=== PATIENT | female | born 1995 | race African-American/Black ===

== ENCOUNTER 2017-08-27 12:57 | Emergency (ER) | payer SELFPAY ==
--- NOTE | 2017-08-27 13:18 | ER Document Report ---
ED Medical Screen (RME) - General Chief Complaint: Arm Pain Stated Complaint: ABSCESS UNDER LEFT ARM Time Seen by Provider: 08/27/17 13:13 Notes: RME DISCLOSURE I have seen this patient as part of a Rapid Medical Evaluation and, if applicable, placed any initially appropriate orders. The patient will be seen and fully evaluated, including a full history and physical exam, by a provider ( in Main ED or Fast Track) when a room becomes available. 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 She has baseline numbness and tingling and states that this is getting worse as well. She has no new complaints. She denies shortness of breath. She cannot tell me what her goals are for this ED visit therefore nothing ordered. TRAVEL OUTSIDE OF THE [place] IN LAST 30 DAYS: No - Related Data Allergies/Adverse Reactions: No Known Allergies Allergy (Verified 06/27/15 14:14) Past Medical History - Social History Chew tobacco use (# tins/day): No Frequency of alcohol use: Occasional Drug Abuse: Marijuana Renal/ Medical History: Denies: Hx Peritoneal Dialysis Past Surgical History: Reports: Hx Section - Immunizations Hx Diphtheria, Pertussis, Tetanus Vaccination: No - given today Physical Exam - Vital signs Vitals: Temp Pulse Resp BP Pulse Ox 97.9 F 78 14 109/68 99 08/27/17 13:10 08/27/17 13:10 08/27/17 13:10 08/27/17 13:10 08/27/17 13:10 Course - Vital Signs Vital signs: Temp Pulse Resp BP Pulse Ox 97.9 F 78 14 109/68 99 08/27/17 13:10 08/27/17 13:10 08/27/17 13:10 08/27/17 13:10 08/27/17 13:10
[2017-08-27] MEDS ORDERED: IBUPROFEN 600 MG TABLET PO ONE (14:38)
--- NOTE | 2017-08-27 14:38 | ER Document Report ---
ED Extremity Problem, Upper - General Chief Complaint: Arm Pain Stated Complaint: ABSCESS UNDER LEFT ARM Time Seen by Provider: 08/27/17 13:13 Mode of Arrival: Ambulatory Information source: Patient Notes: 22-year-old female complaining of neurofibromatosis type I left axillary tumor that is getting larger since March causing paresthesias in her left arm and hand. Started with just the first 3 fingers but this morning she was unable to grasp or use her whole hand. She had a tumor removed from her neck at [facility] years ago. She has no local doctor at this time. TRAVEL OUTSIDE OF THE [place] IN LAST 30 DAYS: No - Related Data Allergies/Adverse Reactions: No Known Allergies Allergy (Verified 06/27/15 14:14) Past Medical History - General Information source: Patient - Social History Smoking Status: Current Every Day Smoker Chew tobacco use (# tins/day): No Frequency of alcohol use: Occasional Drug Abuse: Marijuana Lives with: Friend Family History: Thyroid Disfunction Patient has suicidal ideation: No Patient has homicidal ideation: No Renal/ Medical History: Denies: Hx Peritoneal Dialysis Past Surgical History: Reports: Hx Section - Immunizations Hx Diphtheria, Pertussis, Tetanus Vaccination: No - given today Review of Systems - Review of Systems Constitutional: No symptoms reported EENT: No symptoms reported Cardiovascular: No symptoms reported Respiratory: No symptoms reported Gastrointestinal: No symptoms reported Genitourinary: No symptoms reported Female Genitourinary: No symptoms reported Musculoskeletal: See HPI Skin: No symptoms reported Hematologic/Lymphatic: No symptoms reported Neurological/Psychological: No symptoms reported Physical Exam - Vital signs Vitals: Temp Pulse Resp BP Pulse Ox 97.9 F 78 14 109/68 99 08/27/17 13:10 08/27/17 13:10 08/27/17 13:10 08/27/17 13:10 08/27/17 13:10 Interpretation: Normal - General General appearance: Appears well, Alert In distress: None - HEENT Head: Normocephalic, Atraumatic Eyes: Normal Pupils: PERRL Neck: Supple - Respiratory Respiratory status: No respiratory distress Chest status: Nontender Breath sounds: Normal Chest palpation: Normal - Cardiovascular Rhythm: Regular Heart sounds: Normal auscultation Murmur: No - Abdominal Inspection: Normal Distension: No distension Bowel sounds: Normal Tenderness: Nontender Organomegaly: No organomegaly - Back Back: Normal, Nontender - Extremities General upper extremity: Normal inspection, Nontender, Normal color, Normal ROM , Normal temperature General lower extremity: Normal inspection, Nontender, Normal color, Normal ROM , Normal temperature, Normal weight bearing. No: Aaron's sign Arm: Tender - left axillary soft tissue swelling that is firm, contiguous with anterior axillary muscle and anterolateral pectoral muscle. - Neurological Neuro grossly intact: Yes Cognition: Normal Orientation: AAOx4 [place] Coma Scale Eye Opening: Spontaneous [place] Coma Scale Verbal: Oriented Melisa Coma Scale Motor: Obeys Commands [place] Coma Scale Total: 15 Speech: Normal Motor strength normal: LUE, RUE, LLE, RLE Sensory: Normal Notes: 5+ strength hand squeeze, sensation intact, pulses normal - Psychological Associated symptoms: Normal affect, Normal mood - Skin Skin Temperature: Warm Skin Moisture: Dry Skin Color: Normal Skin irregularity: negative: Rash Course - Re-evaluation Re-evalutation: 08/27/[address] garcia general surgeon who rec. pt be referred to orthopedic surgeon, which I will do. Pt has had this since school age, but friend thinks it is getting larger. - Vital Signs Vital signs: Temp Pulse Resp BP Pulse Ox 98.0 F 66 19 111/66 100 08/27/17 15:04 08/27/17 15:04 08/27/17 15:04 08/27/17 15:04 08/27/17 15:04 Discharge - Discharge Clinical Impression: Neurofibromatosis, left axillary tumor, Arm paresthesia, left Condition: Good Disposition: HOME, SELF-CARE Instructions: Numbness or Paresthesia ([facility]) Additional Instructions: call and schedule appointment with the orthopedic surgeon, referral has been given to you tylenol and motrin for discomfort Prescriptions: Ibuprofen [Motrin 600 mg Tablet] 600 mg PO Q8HP PRN #30 tablet PRN Reason: Referrals: RYLEY SILVERMAN MD [ACTIVE STAFF] - Follow up as needed
[2017-08-27 15:08] VITALS: BP 111/66
== END 2017-08-27 15:07 | disposition home or self-care (01) ==
LOC: ER 12:57
DX: Q85.01 Neurofibromatosis, type 1 (principal); R20.2 Paresthesia of skin; Z98.890 Other specified postprocedural states; F17.200 Nicotine dependence, unspecified, uncomplicated
CPT/HCPCS: 99283

== ENCOUNTER 2018-01-06 09:53 | Emergency (ER) | payer SELFPAY ==
[2018-01-06 10:01] VITALS: BP 113/73
--- NOTE | 2018-01-06 10:14 | ER Document Report ---
ED General - General Chief Complaint: Abscess Stated Complaint: POSSIBLE ABSCESS Time Seen by Provider: 01/06/18 10:09 Notes: Chief complaint: Left axillary swelling History of complain:( obtained from----patient) 22 years old female with a history of neurofibromatosis presents today with left axillary mass which was there for many years. But she wanted to be removed. 2 months ago she was referred to [facility], but she could not go because of lack of insurance. Now she has gotten her Medicaid. Is causing discomfort but no sharp pain. No increase in pain or discomfort compared to other days. No fever chills or other constitutional symptoms. She was hoping that we will send her to [facility] from the ER. But this is not anything urgent. Previously a similar lesion from the left side of the neck was removed at [facility]. Onset: Many years ago Duration: Long-standing Severity: Mild to moderate Quality: None Context: Due to neurofibromatosis. Exacerbating factor and relieving factors: REVIEW OF SYSTEMS: CONSTITUTIONAL : Denies fever, chills, or sweats. Denies recent illness. EENT: Denies eye, ear, throat, or mouth pain or symptoms. Denies nasal or sinus congestion or discharge. Denies throat, tongue, or mouth swelling or difficulty swallowing. CARDIOVASCULAR: Denies chest pain. Denies palpitations or racing or irregular heart beat. Denies ankle edema. RESPIRATORY: Denies cough, cold, or chest congestion. Denies shortness of breath, difficulty breathing, or wheezing. GASTROINTESTINAL: Denies distention. Denies nausea, vomiting, or diarrhea. Denies blood in vomitus, stools, or per rectum. Denies black, tarry stools. Denies constipation. GENITOURINARY: Denies difficulty urinating, painful urination, burning, frequency, blood in urine, or discharge. FEMALE GENITOURINARY: Denies vaginal bleeding, heavy or abnormal periods, irregular periods. Denies vaginal discharge or odor. MUSCULOSKELETAL: Denies back or neck pain or stiffness. Denies joint pain or swelling. SKIN: Denies rash, lesions or sores. HEMATOLOGIC : Denies easy bruising or bleeding. LYMPHATIC: Denies swollen, enlarged glands. NEUROLOGICAL: Denies confusion or altered mental status. Denies passing out or loss of consciousness. Denies dizziness or lightheadedness. Denies headache. Denies weakness or paralysis or loss of use of either side. Denies problems with gait or speech. Denies sensory loss, numbness, or tingling. Denies seizures. PSYCHIATRIC: Denies anxiety or stress. Denies depression, suicidal ideation, or homicidal ideation. ALL OTHER SYSTEMS REVIEWED AND NEGATIVE. PHYSICAL EXAMINATION: GENERAL: Well-appearing, well-nourished and in no acute distress. Multiple neurofibromatosis lesions were noted throughout the skin HEAD: Atraumatic, normocephalic. EYES: Pupils equal round and reactive to light, extraocular movements intact, conjunctiva are normal. ENT: Nares patent, oropharynx clear without exudates. Moist mucous membranes. NECK: Normal range of motion, supple without lymphadenopathy LUNGS: Breath sounds clear to auscultation bilaterally and equal. No wheezes rales or rhonchi. HEART: Regular rate and rhythm without murmurs ABDOMEN: Soft, nontender, nondistended abdomen. No guarding, no rebound. No masses appreciated. Examination of genitals-deferred Musculoskeletal: Left axilla has a large mass which is larger than the baseball. Which is not tender, not erythematous, is not warm, hard and firm. Not mobile NEUROLOGICAL: Cranial nerves grossly intact. Normal speech, normal gait. Normal sensory, motor exams PSYCH: Normal mood, normal affect. SKIN: Multiple skin lesions of neurofibromatosis noted Dictation was performed using [employer] voice recognition software TRAVEL OUTSIDE OF THE [place] IN LAST 30 DAYS: No - HPI Notes: Dictated - Related Data Allergies/Adverse Reactions: No Known Allergies Allergy (Verified 01/06/18 09:56) Past Medical History - Social History Smoking Status: Unknown if Ever Smoked Cigarette use (# per day): No Chew tobacco use (# tins/day): No Frequency of alcohol use: Rare Drug Abuse: None Lives with: Family Family History: Reviewed & Not Pertinent, Thyroid Disfunction Patient has suicidal ideation: No Patient has homicidal ideation: No Renal/ Medical History: Denies: Hx Peritoneal Dialysis Past Surgical History: Reports: Hx Section - Immunizations Hx Diphtheria, Pertussis, Tetanus Vaccination: No - given today Review of Systems - Review of Systems Notes: Dictated Physical Exam - Vital signs Vitals: Temp Pulse Resp BP Pulse Ox 98.1 F 58 L 16 113/73 100 01/06/18 09:59 01/06/18 09:59 01/06/18 09:59 01/06/18 09:59 01/06/18 09:59 - Notes Notes: Dictated Course - Re-evaluation Re-evalutation: 01/06/18 10:13 She was explained very clearly and in detail that this is a lesion that none of our doctors here will do surgery on it she has to go to [facility] again. And asked to follow-up with primary care physician. To make necessary referral again. It is not something urgent. - Vital Signs Vital signs: Temp Pulse Resp BP Pulse Ox 98.1 F 58 L 16 113/73 100 01/06/18 09:59 01/06/18 09:59 01/06/18 09:59 01/06/18 09:59 01/06/18 09:59 Discharge - Discharge Clinical Impression: Neurofibromatosis Axillary mass Qualifiers: Laterality: left Qualified Code(s): R22.32 - Localized swelling, mass and lump , left upper limb Condition: Fair Disposition: HOME, SELF-CARE Instructions: Growth or Mass, Pending Workup ([facility])
== END 2018-01-06 10:32 | disposition home or self-care (01) ==
LOC: ER 09:53
DX: Q85.00 Neurofibromatosis, unspecified (principal)
CPT/HCPCS: 99283

== ENCOUNTER 2018-01-06 19:07 | Emergency (ER) | payer MEDICAID ==
[2018-01-06] MEDS ORDERED: NORMAL SALINE 1000 ML 1,000 ML IV ONE (19:18)
--- NOTE | 2018-01-06 19:19 | ER Document Report ---
ED General - General Chief Complaint: Vomiting Stated Complaint: VOMITING Time Seen by Provider: 01/06/18 19:16 Cannot obtain history due to: Intoxicated, Uncooperative, Altered mental status Notes: Patient is a 22-year-old female who presents with altered mental status. Initial history difficult to obtain as the patient is not speaking although this does appear to be volitional. Family not available for additional history taking. TRAVEL OUTSIDE OF THE [place] IN LAST 30 DAYS: No - Related Data Allergies/Adverse Reactions: No Known Allergies Allergy (Verified 01/06/18 09:56) Past Medical History - General Information source: [facility] Records Cannot obtain history due to: Intoxicated, Uncooperative, Altered mental status - Social History Smoking Status: Current Every Day Smoker Drug Abuse: Marijuana Family History: Reviewed & Not Pertinent, Thyroid Disfunction Renal/ Medical History: Denies: Hx Peritoneal Dialysis Past Surgical History: Reports: Hx Section - Immunizations Hx Diphtheria, Pertussis, Tetanus Vaccination: No - given today Review of Systems - Review of Systems -: Yes ROS unobtainable due to patient's medical condition Physical Exam - Vital signs Vitals: Resp Pulse Ox 23 H 100 01/06/18 19:16 01/06/18 19:16 Interpretation: Normal Notes: PHYSICAL EXAMINATION: GENERAL: Appears in no acute distress, somewhat lethargic although has intermittent periods of either giggling or laughing. HEAD: Atraumatic, normocephalic. EYES: Pupils equal round and reactive to light, extraocular movements intact, sclera anicteric, conjunctiva are normal. ENT: nares patent, oropharynx clear without exudates. Mildly dry mucous membranes. NECK: Normal range of motion, supple without lymphadenopathy LUNGS: Breath sounds clear to auscultation bilaterally and equal. No wheezes rales or rhonchi. HEART: Regular rate and rhythm without murmurs ABDOMEN: Soft, nontender, normoactive bowel sounds. No guarding, no rebound. No masses appreciated. EXTREMITIES: Normal range of motion, no pitting or edema. No cyanosis. NEUROLOGICAL: Follows commands in the bilateral upper and lower extremities after multiple requests. Face symmetric. Pupils equal and reactive. PSYCH: Appears to have volitional refusal to participate in care. Intermittently giggling or laughing inappropriately. SKIN: Warm, Dry, normal turgor, no rashes or lesions noted. Course - Re-evaluation Re-evalutation: 01/06/18 19:18 Patient presents with confusion, initially not speaking in triage. The patient when I confronted her directly as she is not unconscious when I initially assess her begin speaking to me, starts following commands in all extremities, actually gives me the middle finger in her right hand when I asked her to follow commands in the right hand. She then begins to laugh after I state " that was nice". She then later admitted to several nursing staff that she was doing drugs prior to arrival apparently something called "flower". Patient although initially refusing to comply with any form of examination became more compliant as the examination along. On exam, breath sounds are equal and clear bilaterally. She is in no distress. Vitals within normal limits. No focal neurologic deficits. She does appear to be intoxicated on some form of THC or hallucinogenic. Given the unclear initial picture, will obtain labs, CT the head, reassess the patient. Patient unable to provide complete history at time of initial assessment due to her intoxication 01/06/18 22:08 CT the head did show an incidental finding of a [place] unruptured aneurysm. The patient denies any headache, repeat neurologic assessments remain normal. No indication for emergent transfer. I have emphasized with the patient the need for close outpatient follow-up with her primary care doctor and referral to neurosurgery for evaluation and consideration of treatment of this incidental finding. Patient is requesting to go home. The repeat examination is otherwise completely unremarkable. I have encouraged her to discontinue heavy drug use. At this time will discharge with return precautions and follow-up recommendations. Verbal discharge instructions given a the bedside and opportunity for questions given. Medication warnings reviewed. Patient is in agreement with this plan and has verbalized understanding of return precautions and the need for primary care follow-up in the next 24-72 hours. 01/07/18 04:32 - Vital Signs Vital signs: Temp Pulse Resp BP Pulse Ox 98.4 F 17 120/90 H 100 01/06/18 19:24 01/06/18 22:10 01/06/18 21:04 01/06/18 21:04 - Laboratory Result Diagrams: 01/06/18 19:10 01/06/18 19:10 Laboratory results interpreted by me: 01/06/18 19:10 Hgb 11.3 L Hct 33.8 L RDW 18.9 H - Diagnostic Test Radiology reviewed: Image reviewed, Reports reviewed Radiology results interpreted by me: 01/07/18 04:33 CT head: No acute intracranial bleed Discharge - Discharge Clinical Impression: Neurofibromatosis, Cerebral aneurysm without rupture, Drug abuse Altered mental status Qualifiers: Altered mental status type: unspecified Qualified Code(s): R41.82 - Altered mental status, unspecified Condition: Good Disposition: HOME, SELF-CARE Additional Instructions: Aortic your seen today for confusion in the setting of using drugs. Please do avoid taking illicit substances in the future. Your labs today are normal. Your CT scan did incidentally noticed that you have a small brain aneurysm that has not ruptured. You do need to follow-up with your primary care doctor regarding this finding as they will likely refer you to a neurosurgeon. The reason for this referral would be to monitor the aneurysm. Sometimes if your neurosurgeon believes it is appropriate, they will go and remove the area of the aneurysm. Other times they will simply monitor the area. Nitroglycerin your CT scan reports have been included in your paperwork for their reference. Please return to the emergency department if you develop any shortness of breath , pass out, develop severe headache, weakness, numbness or vomiting. Please also return if you develop any other symptoms that are worrisome to you. Referrals: QI MELÉNDEZ MD [Primary Care Provider] - Follow up as needed
[2018-01-06 19:26] LABS: ABSOLUTE EOSINOPHILS # (AUTO) 0.1 10^3/uL (0.0-0.6); ABSOLUTE LYMPHOCYTES (AUTO) 1.9 10^3/uL (0.5-4.7); ABSOLUTE MONOCYTES (AUTO) 0.6 10^3/uL (0.1-1.4); ABSOLUTE NEUT (AUTO) 3.3 10^3/uL (1.7-8.2); BASOPHILS % (AUTO) 0.8 % (0-2); EOSINOPHILS % (AUTO) 1.5 % (0-6); HEMATOCRIT 33.8 % (36.0-47.0); HEMOGLOBIN 11.3 g/dL (12.0-15.5); LYMPHOCYTES % (AUTO) 32.5 % (13-45); MEAN CORPUSCULAR HEMOGLOBIN 28.8 pg (27.0-33.4); MEAN CORPUSCULAR HGB CONC 33.4 g/dL (32.0-36.0); MEAN CORPUSCULAR VOLUME 86 fl (80-97); MONOCYTES % (AUTO) 10.2 % (3-13); PLATELET COUNT 200 10^3/uL (150-450); RED BLOOD COUNT 3.91 10^6/uL (3.72-5.28); RED CELL DISTRIBUTION WIDTH 18.9 % (11.5-14.0); TOTAL CELLS COUNTED % (AUTO) 100 %
[2018-01-06 19:41] LABS: ALANINE AMINOTRANSFERASE 43 U/L (9-52); ALCOHOL 92 mg/dL (NONE DETECTED); ALKALINE PHOSPHATASE 46 U/L (38-126); ANION GAP 15 (5-19); ASPARTATE AMINO TRANSFERASE 36 U/L (14-36); BILIRUBIN,DIRECT 0.2 mg/dL (0.0-0.4); BILIRUBIN,TOTAL 0.5 mg/dL (0.2-1.3); BLOOD UREA NITROGEN 8 mg/dL (7-20); CALCIUM 9.1 mg/dL (8.4-10.2); CARBON DIOXIDE 26 mmol/L (22-30); CHLORIDE 104 mmol/L (98-107); GLUCOSE 79 mg/dL (75-110); POTASSIUM 3.8 mmol/L (3.6-5.0); SODIUM 144.7 mmol/L (137-145); TOTAL PROTEIN 7.4 g/dL (6.3-8.2)
--- NOTE | 2018-01-06 20:19 | RADIOLOGY REPORT (SQ) ---
EXAM DESCRIPTION: CT HEAD WITHOUT COMPLETED DATE/TIME: 01/06/2018 8:04 pm REASON FOR STUDY: ams COMPARISON: None. TECHNIQUE: Axial images acquired through the brain without intravenous contrast. Images reviewed wi th bone, brain and subdural windows. Additional sagittal and coronal reconstructions were generated. Images stored on PACS. All CT scanners at this facility use dose modulation, iterative reconstruction, and/or weight based d osing when appropriate to reduce radiation dose to as low as reasonably achievable (ALARA). [facility]: Dose Right [facility]: CareDose [facility]: Dose Right [facility]: Teradose 4D [facility]: Smart famPlus RADIATION DOSE: CT Rad equipment meets quality standard of care and radiation dose reduction techniq ues were employed. CTDIvol: 53.2 - 55.2 mGy. DLP: 2236 mGy-cm. mGy. LIMITATIONS: None. FINDINGS: VENTRICLES: Normal size and contour. CEREBRUM: No masses. No hemorrhage. No midline shift. No evidence for acute infarction. Normal gra y/white matter differentiation. No areas of low density in the white matter. CEREBELLUM: Punctate density without mass effect in the right cerebellar hemisphere. Probably calciu m. Possibly blood. EXTRAAXIAL SPACES: 1.2 cm left suprasellar mass. Possibly aneurysm. ORBITS AND GLOBE: No intra- or extraconal masses. Normal contour of globe without masses. CALVARIUM: No fracture. PARANASAL SINUSES: No fluid or mucosal thickening. SOFT TISSUES: No mass or hematoma. OTHER: No other significant finding. IMPRESSION: 1.2 cm left suprasellar mass. Possibly aneurysm in the [place]. Recommend CT wit h contrast. Punctate density in the right cerebellar hemisphere which is likely calcium. Possibly blood. Recomm end delayed follow-up study. EVIDENCE OF ACUTE STROKE: NO. COMMENT: Pertinent findings on the imaging study reported as a CRITICAL RESULT to rita SHEETS at2 0:10 on 01/06/2018. Category of Critical Result: Possible [place] aneurysm. Quality ID # 436: Final reports with documentation of one or more dose reduction techniques (e.g., Au tomated exposure control, adjustment of the mA and/or kV according to patient size, use of iterative reconstruction technique) TECHNICAL DOCUMENTATION: JOB ID: [id number] [employer]- All Rights Reserved Reading location - IP/workstation name: [email or web address]
[2018-01-06 20:42] LABS: URINE AMPHETAMINES SCREEN NEGATIVE; URINE BARBITURATES SCREEN NEGATIVE; URINE BENZODIAZEPINES SCREEN NEGATIVE; URINE COCAINE SCREEN NEGATIVE; URINE MARIJUANA (THC) SCREEN UNCONFIRMED POSITIVE; URINE METHADONE SCREEN NEGATIVE; URINE PHENCYCLIDINE SCREEN NEGATIVE
--- NOTE | 2018-01-06 21:51 | RADIOLOGY REPORT (SQ) ---
EXAM DESCRIPTION: CT HEAD WITH COMPLETED DATE/TIME: 01/06/2018 9:36 pm REASON FOR STUDY: concern for aneurysm COMPARISON: 01/06/2018 TECHNIQUE: Axial images acquired through the brain with intravenous contrast. Images reviewed with b one, brain and subdural windows. Additional sagittal and coronal reconstructions were generated. Idania ges stored on PACS. All CT scanners at this facility use dose modulation, iterative reconstruction, and/or weight based d osing when appropriate to reduce radiation dose to as low as reasonably achievable (ALARA). [facility]: Dose Right [facility]: CareDose [facility]: Dose Right [facility]: Teradose 4D [facility]: [employer] CONTRAST TYPE AND DOSE: contrast/concentration: Isovue 350.00 mg/ml; Total Contrast Delivered: 50.0 ml; Total Saline Delivered: 26.0 ml RENAL FUNCTION: None required. The patient is less than 50 years old. RADIATION DOSE: CT Rad equipment meets quality standard of care and radiation dose reduction techniq ues were employed. CTDIvol: 53.2 mGy. DLP: 1150 mGy-cm.. LIMITATIONS: None. FINDINGS: VENTRICLES: Normal size and contour. CEREBRUM: No masses. No hemorrhage. No midline shift. Normal [place]/white matter differentiation. No ev idence for acute infarction. No enhancing lesions. CEREBELLUM: No masses. No hemorrhage. No alteration of density. No evidence for acute infarction. No enhancing lesions. Punctate density right cerebellar hemisphere does not enhance. EXTRA-AXIAL SPACES: The left suprasellar lesion this nonenhanced but the appearance is strongly suspi cious for a partially thrombosed aneurysm in the [place]. Optic chiasm mass is in the differen tial. ORBITS AND GLOBE: No intra- or extraconal masses. Normal contour of globe without masses. CALVARIUM: No fracture. PARANASAL SINUSES: No fluid or mucosal thickening. SOFT TISSUES: No mass or hematoma. OTHER: No other significant finding. 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 Density in the right cerebellar hemisphere does not enhance. Likely calcium. EVIDENCE OF ACUTE STROKE: NO. TECHNICAL DOCUMENTATION: JOB ID: [id number] Quality ID # [id number]: Final reports with documentation of one or more dose reduction techniques (e.g., Au tomated exposure control, adjustment of the mA and/or kV according to patient size, use of iterative reconstruction technique) 2010 [employer]- All Rights Reserved Reading location - IP/workstation name: [email or web address]
[2018-01-06 22:17] VITALS: BP 120/90
== END 2018-01-06 22:39 | disposition home or self-care (01) ==
LOC: ER 19:07
DX: Q85.00 Neurofibromatosis, unspecified (principal); I67.1 Cerebral aneurysm, nonruptured; F12.10 Cannabis abuse, uncomplicated; R41.0 Disorientation, unspecified; F17.200 Nicotine dependence, unspecified, uncomplicated
CPT/HCPCS: 99284; 96360; 96361; 36415; 82962; 80307 ×2; 85025; 80053; 70450; 70460; J7030

== ENCOUNTER 2018-03-05 22:35 | Emergency (ER) | payer MEDICAID ==
--- NOTE | 2018-03-05 23:34 | RADIOLOGY REPORT (SQ) ---
EXAM DESCRIPTION: CT HEAD WITHOUT IV CONTRAST COMPLETED DATE/TME: 03/05/2018 00:00 CLINICAL HISTORY: Fall/head injury. COMPARISON: None available TECHNIQUE: Axial CT of the head obtained from the skull apex to the skull base without contrast. FINDINGS: Hyperdense focus in the right cerebellum measuring 0.7 cm is stable in appearance from the comparison study. 1.2 cm suprasellar nodular structure is unchanged. No new hypodensities to suggest acute hemorrhage. No mass effect or midline shift. The ventricular system is unremarkable. No acute abnormalities of the supratentorial white matter, basal ganglia, or brainstem. Mucosal thickening of the right maxillary sinus. Mastoid air cells are well aerated. No skull fracture identified. Subcutaneous soft tissue density structure in the scalp apex is stable and may represent a sebaceous cyst. Visualized orbits and globes are unremarkable. DLP: 1176.79 mGy-cm IMPRESSION: 1. Hyperdense focus in the right cerebellum measuring 0.7 cm is stable in appearance from the comparison study. This may represent a focus of calcium. No significant midline shift or mass effect. 2. Stable appearance of the 1.2 cm suprasellar nodular structure likely representing an aneurysm. 3. No acute intracranial abnormalities identified. This exam was performed according to our departmental dose-optimization program, which includes automated exposure control, adjustment of the mA and/or kV according to patient size and/or use of iterative reconstruction technique.
[2018-03-06] MEDS ORDERED: METOCLOPRAMIDE HCL INJ/PF 10 MG/2 ML SDV IV ONE (01:08)
--- NOTE | 2018-03-06 01:11 | ER Document Report ---
ED General - General Chief Complaint: Headache Stated Complaint: HEADACHE Time Seen by Provider: 03/05/18 23:18 Notes: Patient is a 22-year old female with a past medical history of a known aneurysm , migraine headaches, who presents with a headache that started relatively abruptly approximately 2 hours prior to arrival. The patient does describe this as a severe, constant headache to the bifrontal aspect of her scalp. States it is worsened by lights. She has tried to take a BC powder without any improvement. She has had associated vomiting. She denies any associated neck pain, weakness, numbness, confusion, fever or constitutional symptoms. She states that she felt well prior to the onset of the headache and had not had any additional issues today. Her significant other called 911 because of the patient's history of an aneurysm. She has never had a rupture of her aneurysm. TRAVEL OUTSIDE OF THE [place] IN LAST 30 DAYS: No - Related Data Allergies/Adverse Reactions: No Known Allergies Allergy (Verified 03/06/18 00:39) Past Medical History - General Information source: Patient - Social History Smoking Status: Current Every Day Smoker Frequency of alcohol use: Social Drug Abuse: Marijuana Lives with: Spouse/Significant other Family History: Reviewed & Not Pertinent, Thyroid Disfunction Patient has suicidal ideation: No Patient has homicidal ideation: No Renal/ Medical History: Denies: Hx Peritoneal Dialysis Past Surgical History: Reports: Hx Section - Immunizations Hx Diphtheria, Pertussis, Tetanus Vaccination: No - given today Review of Systems - Review of Systems Notes: Constitutional: Negative for fever. HENT: Negative for sore throat. Eyes: Negative for visual changes. Cardiovascular: Negative for chest pain. Respiratory: Negative for shortness of breath. Gastrointestinal: Negative for abdominal pain, positive for nausea and vomiting Genitourinary: Negative for dysuria. Musculoskeletal: Negative for back pain. Skin: Negative for rash. Neurological: Positive for headache 10 point ROS negative except as marked above and in HPI. Physical Exam - Vital signs Vitals: Temp Pulse Resp BP Pulse Ox 98.1 F 55 L 19 115/68 100 03/05/18 23:36 03/05/18 23:36 03/05/18 23:36 03/05/18 23:36 03/05/18 23:36 Interpretation: Bradycardic Notes: PHYSICAL EXAMINATION: GENERAL: Appears moderately uncomfortable but in no acute distress HEAD: Atraumatic, normocephalic. EYES: Pupils equal round and reactive to light, extraocular movements intact, sclera anicteric, conjunctiva are normal. ENT: nares patent, oropharynx clear without exudates. Moist mucous membranes. NECK: Normal range of motion, supple without lymphadenopathy LUNGS: Breath sounds clear to auscultation bilaterally and equal. No wheezes rales or rhonchi. HEART: Regular rate and rhythm without murmurs ABDOMEN: Soft, nontender, normoactive bowel sounds. No guarding, no rebound. No masses appreciated. EXTREMITIES: Normal range of motion, no pitting or edema. No cyanosis. NEUROLOGICAL: Face symmetric. Tongue protrudes midline. Extraocular motions intact. Pupils are 2 mm and equally reactive. Normal speech, normal gait. 5 out of 5 strength in both the distal and proximal upper and lower extremities bilaterally. Sensation is grossly intact throughout. Finger to nose testing normal. Pronator drift normal. PSYCH: Mildly anxious SKIN: Warm, Dry, normal turgor, no rashes or lesions noted. Course - Re-evaluation Re-evalutation: 03/06/18 01:08 Presentation of a headache that appears to be most consistent with tension versus migrainous type headache. Patient does have a history of an aneurysm and a stat CT of the head was obtained within 2 hours of onset of her headache and is noted to be normal without any evidence of aneurysmal rupture. Aneurysm is noted stable in size. Headache was not maximal in onset, patient has no focal neurologic deficits, no nuchal rigidity, vital signs within normal limits , no papilledema, and patient is overall well in appearance. Based on clinical history and examination I do not suspect an acute subarachnoid hemorrhage, dural venous sinus thrombosis, acute meningitis, or intercranial mass. Patient has had complete resolution of her headache after receiving metoclopramide. No indication for labs. At this time will discharge with return precautions and follow-up recommendations. Verbal discharge instructions given a the bedside and opportunity for questions given. Medication warnings reviewed. Patient is in agreement with this plan and has verbalized understanding of return precautions and the need for primary care follow-up in the next 24-72 hours. - Vital Signs Vital signs: Temp Pulse Resp BP Pulse Ox 97.9 F 59 L 15 108/64 100 03/06/18 01:51 03/06/18 01:51 03/06/18 01:51 03/06/18 01:51 03/06/18 01:51 - Diagnostic Test Radiology reviewed: Image reviewed, Reports reviewed Radiology results interpreted by me: 03/06/18 01:10 CT head: No acute intracranial bleed, no evidence of aneurysmal rupture Discharge - Discharge Clinical Impression: Acute headache Qualifiers: Headache type: unspecified Intractability: not intractable Qualified Code(s): R51 - Headache Nausea and vomiting Qualifiers: Vomiting type: unspecified Vomiting Intractability: non-intractable Qualified Code(s): R11.2 - Nausea with vomiting, unspecified Condition: Good Disposition: HOME, SELF-CARE Additional Instructions: You have been seen in the Emergency Department (ED) for a headache. Please use Tylenol (acetaminophen) or Motrin (ibuprofen) as needed for symptoms, but only as written on the box. Your CT scan today is Stable from prior and does not show any evidence of aneurysmal rupture. As we have discussed, please follow up with your primary care doctor as soon as possible regarding today's ED visit and your headache symptoms. Call your doctor or return to the ED if you have a worsening headache, sudden and severe headache, confusion, slurred speech, facial droop, weakness or numbness in any arm or leg, extreme fatigue, or other symptoms that concern you..
[2018-03-06 01:54] VITALS: BP 108/64
== END 2018-03-06 02:27 | disposition home or self-care (01) ==
LOC: ER 22:35
DX: R51 Headache (principal); R11.2 Nausea with vomiting, unspecified; F17.200 Nicotine dependence, unspecified, uncomplicated
CPT/HCPCS: 99284; 96374; 70450; J2765

== ENCOUNTER → 2018-08-24 | Outpatient (CLI) | payer MEDICAID ==
--- NOTE | 2018-08-24 17:20 | NEURO WORKBENCH EEG REPORT ---
Patient: Jose Banks ID: [id number] Referring Doctor: Jose Alberto Mireles Date: 08/24/2018 Reason for study: Evaluate Epileptiform activity Medications: Gabapentin History: This is a 23 year old female with a history of seizures beginning in February 2018, short term memory loss, headaches, reported brain tumor not otherwise specified, and asthma. This EEG was requested for evaluation of epileptiform activity. EEG Interpretation: This EEG was recorded during wakefulness, stage I, and stage II sleep. The awake EEG is characterized by a well organized background with a well developed and reactive posterior dominant rhythm (PDR) of approximately 10-11 Hz. The remainder of the background consisted low amplitude frontally predominant beta activity. The EEG is symmetric in amplitudes and frequencies. Stage I sleep is characterized by slow rolling eye movements, slowing of the background rhythm by 1-2 Hz, and vertex waves. Stage II sleep was noted with symmetric sleep spindles noted. Photic stimulation resulted in photic driving, and there was no epileptiform activity elicited with photic stimulation. Hyperventilation resulted in minimal background slowing and minimal increased amplitude activity (normal for age) and no epileptiform activity was elicited. There were no epileptiform abnormalities (no sharp waves and no spikes). There were no seizures. The EKG showed a regular rhythm with typically 80-90 beats per minute. EEG Impression This EEG is within normal limits for age. There was no epileptiform activity or seizures. A single normal routine EEG does not rule out the possibility of epilepsy. If there is high clinical suspicion for epilepsy, then additional EEG evaluation should be considered with a sleep-deprived EEG or more prolonged EEG monitoring. INTERPRETING NEUROLOGIST: Solis Bryson MD [facility]
== END ==
LOC: NEURO 13:03
PROVIDERS: ATTEND Psychiatry & Neurology Neurology
DX: R56.9 Unspecified convulsions (principal)
CPT/HCPCS: 95819

== ENCOUNTER 2018-08-30 21:44 | Emergency (ER) | payer MEDICAID ==
[2018-08-30 22:21] LABS: ABSOLUTE BASOPHILS # (AUTO) 0.1 10^3/uL (0.0-0.2); ABSOLUTE EOSINOPHILS # (AUTO) 0.2 10^3/uL (0.0-0.6); ABSOLUTE MONOCYTES (AUTO) 0.8 10^3/uL (0.1-1.4); ABSOLUTE NEUT (AUTO) 4.1 10^3/uL (1.7-8.2); BASOPHILS % (AUTO) 1.4 % (0-2); EOSINOPHILS % (AUTO) 2.9 % (0-6); HEMATOCRIT 32.8 % (36.0-47.0); HEMOGLOBIN 11.1 g/dL (12.0-15.5); LYMPHOCYTES % (AUTO) 27.4 % (13-45); MEAN CORPUSCULAR HEMOGLOBIN 28.5 pg (27.0-33.4); MEAN CORPUSCULAR HGB CONC 33.9 g/dL (32.0-36.0); MEAN CORPUSCULAR VOLUME 84 fl (80-97); PLATELET COUNT 233 10^3/uL (150-450); RED CELL DISTRIBUTION WIDTH 17.8 % (11.5-14.0); SEGMENTED NEUTROPHILS % (AUTO) 57.3 % (42-78); TOTAL CELLS COUNTED % (AUTO) 100 %; WHITE BLOOD COUNT 7.2 10^3/uL (4.0-10.5)
[2018-08-30 22:39] LABS: ALANINE AMINOTRANSFERASE 24 U/L (9-52); ALBUMIN 4.2 g/dL (3.5-5.0); ALKALINE PHOSPHATASE 53 U/L (38-126); ANION GAP 8 (5-19); ASPARTATE AMINO TRANSFERASE 21 U/L (14-36); BILIRUBIN,DIRECT 0.2 mg/dL (0.0-0.4); BILIRUBIN,TOTAL 0.2 mg/dL (0.2-1.3); BLOOD UREA NITROGEN 11 mg/dL (7-20); CALCIUM 9.8 mg/dL (8.4-10.2); CARBON DIOXIDE 29 mmol/L (22-30); CHLORIDE 100 mmol/L (98-107); GLUCOSE 84 mg/dL (75-110); POTASSIUM 4.6 mmol/L (3.6-5.0); SODIUM 137.2 mmol/L (137-145); TOTAL PROTEIN 7.8 g/dL (6.3-8.2)
[2018-08-30 22:42] LABS: ACETAMINOPHEN < 10 ug/mL (10-30); ALCOHOL < 10 mg/dL (NONE DETECTED); SALICYLATE < 1.0 mg/dL (2.0-20.0)
--- NOTE | 2018-08-30 23:06 | ER Document Report ---
Addendum entered and electronically signed by AIMEE STEEN DO 08/31/18 12:57: Discharge - Discharge Clinical Impression: Suicidal ideation, Other social stressor Condition: Stable Disposition: HOME, SELF-CARE Additional Instructions: You have been evaluated by both medical and behavioral health providers while in the emergency department. You are being provided prescriptions (Celexa and Buspar) to help manage your situational depression/anxiety and suicidal ideation. You should take these medications as instructed. You are being linked with outpatient mental health services for medication management (since starting medication) and therapy to aid as professional supports with your social/family stress. They may be able to link you to a provider who can perform the psychological testing requested by department of social worker masters child protective services. Your will be a natural support and aid in monitoring you. You have been cleared from acute medical and psychiatric services. DEPRESSION: Your evaluation reveals that you have mental depression. While symptoms may be vague, they often include disturbance of sleep, fatigue, loss of appetite, and general loss of interest in life. While depression may be a side effect of drugs, or a reaction to a major change in your life, many cases have no known cause. If depression is acute, and related to a major loss in your life, you can expect it to clear completely with time. If you have been depressed a long time, are prone to repeated bouts of depression or low mood, or have been thinking of suicide, get help. Depression can be treated with anti-depressant medication and counselling. Long-term depression will often take a few weeks to clear, even with appropriate medication. Follow-up care is important. Anxiety The physician feels that some of your health problems are being caused by anxiety. Anxiety affects your health in many ways. Anxiety alone can cause palpitations, sweats, chest pains, abdominal pains, shortness of breath, and headaches. It contributes to ulcer disease, high blood pressure, irritable bowel syndrome, and has been shown to cause flare-ups of many other diseases. Anxiety is not a simple disorder to treat. If the anxiety is due to recent life stresses, you may simply need time to "work through" the changes. If the anxiety is due to an underlying unhappiness with yourself or due to psychiatric disturbance, professional help will be needed. Your physician can refer you for further help if needed. Anti-anxiety medication is occasionally given if the stress is acute or if you are having trouble sleeping. Chronic or frequent use of these medications is not a good idea because the body becomes reliant on it, preventing you from dealing with life's normal stresses. SUICIDAL IDEATION: Suicidal ideation is a common medical term for thoughts about suicide, which may be as detailed as a formulated plan, without the suicidal act itself. Although most people who undergo suicidal ideation do not commit suicide, some go on to make suicide attempts. The range of suicidal ideation varies greatly from fleeting to detailed planning, role playing, and unsuccessful attempts. While thoughts about suicide are common, most people do not carry out serious actions to commit suicide. Based upon your evaluation and discussion with you, we do not believe you are currently at risk to act upon your thoughts of suicide. You have agreed to return to the Emergency Department, at any time, if you feel inclined to act upon your suicidal thoughts. FOLLOW-UP CARE: You have a follow up appointment scheduled with Deonte Rowe PA on 09/07/18 at 0930 for medication management and therapy. You should make this appointment for professional support given family/social stress. If you experience worsening or a significant change in your symptoms, notify the physician immediately, utilize mobile crisis or return to the Emergency Department at any time for re- evaluation. Prescriptions: Buspirone HCl [Buspar 5 mg Tablet] 1 tab PO BID #30 tab Citalopram Hydrobromide [Celexa 20 mg Tablet] 20 mg PO DAILY #14 tablet Referrals: Deonte Rowe PA [Provider Group] - 09/07/18 9:30 am [facility] [Outside] - Follow up as needed Addendum entered and electronically signed by RUBÉN FIELDS LPC 08/31/18 11:52: Discharge - Discharge Clinical Impression: Suicidal ideation, Other social stressor Condition: Stable Disposition: HOME, SELF-CARE Additional Instructions: You have been evaluated by both medical and behavioral health providers while in the emergency department. You are being provided prescriptions (Celexa and Buspar) to help manage your situational depression/anxiety and suicidal ideation. You should take these medications as instructed. You are being linked with outpatient mental health services for medication management (since starting medication) and therapy to aid as professional supports with your social/family stress. They may be able to link you to a provider who can perform the psychological testing requested by department of social worker masters child protective services. Your will be a natural support and aid in monitoring you. You have been cleared from acute medical and psychiatric services. DEPRESSION: Your evaluation reveals that you have mental depression. While symptoms may be vague, they often include disturbance of sleep, fatigue, loss of appetite, and general loss of interest in life. While depression may be a side effect of drugs, or a reaction to a major change in your life, many cases have no known cause. If depression is acute, and related to a major loss in your life, you can expect it to clear completely with time. If you have been depressed a long time, are prone to repeated bouts of depression or low mood, or have been thinking of suicide, get help. Depression can be treated with anti-depressant medication and counselling. Long-term depression will often take a few weeks to clear, even with appropriate medication. Follow-up care is important. Anxiety The physician feels that some of your health problems are being caused by anxiety. Anxiety affects your health in many ways. Anxiety alone can cause palpitations, sweats, chest pains, abdominal pains, shortness of breath, and headaches. It contributes to ulcer disease, high blood pressure, irritable bowel syndrome, and has been shown to cause flare-ups of many other diseases. Anxiety is not a simple disorder to treat. If the anxiety is due to recent life stresses, you may simply need time to "work through" the changes. If the anxiety is due to an underlying unhappiness with yourself or due to psychiatric disturbance, professional help will be needed. Your physician can refer you for further help if needed. Anti-anxiety medication is occasionally given if the stress is acute or if you are having trouble sleeping. Chronic or frequent use of these medications is not a good idea because the body becomes reliant on it, preventing you from dealing with life's normal stresses. SUICIDAL IDEATION: Suicidal ideation is a common medical term for thoughts about suicide, which may be as detailed as a formulated plan, without the suicidal act itself. Although most people who undergo suicidal ideation do not commit suicide, some go on to make suicide attempts. The range of suicidal ideation varies greatly from fleeting to detailed planning, role playing, and unsuccessful attempts. While thoughts about suicide are common, most people do not carry out serious actions to commit suicide. Based upon your evaluation and discussion with you, we do not believe you are currently at risk to act upon your thoughts of suicide. You have agreed to return to the Emergency Department, at any time, if you feel inclined to act upon your suicidal thoughts. FOLLOW-UP CARE: You have a follow up appointment scheduled with Deonte Rowe PA on 09/07/18 at 0930 for medication management and therapy. You should make this appointment for professional support given family/social stress. If you experience worsening or a significant change in your symptoms, notify the physician immediately, utilize mobile crisis or return to the Emergency Department at any time for re- evaluation. Referrals: [facility] [Outside] - Follow up as needed Deonte [facility] [Provider Group] - 09/07/18 9:30 am Original Note: ED General - General Chief Complaint: Suicidal Ideation Stated Complaint: SUICIDAL IDEATION Time Seen by Provider: 08/30/18 22:00 Notes: Patient is a 23-year-old female that presents to the emergency department for chief complaint of suicidal ideations. Patient reports that she has been having these thoughts for the past few days, she is currently living in a homeless retirement. She states that she has had suicidal thoughts in the past, she states that this time she wants to ride her bike in a traffic to kill herself. She does have 2 children, which are not with her currently. She denies any alcohol or illicit drug use. Admits to smoking cigarettes. She takes gabapentin for neuropathy, but denies taking any medications for depression, anxiety or bipolar disorder. She denies any hallucinations auditory or visual. Past Medical History: Neuropathy Past Surgical History: , neck surgery Social History: Admits to smoking cigarettes, denies alcohol or drug use. Family History: Reviewed and noncontributory for presenting illness Allergies: Reviewed, see documented allergy list. REVIEW OF SYSTEMS: Other than noted above, the 12 point review of systems was reviewed with the patient and were negative, all pertinent findings are included in the HPI. PHYSICAL EXAMINATION: Vital signs reviewed, nursing noted reviewed. GENERAL: Patient appears frail, somewhat malnourished appearing. HEAD: Atraumatic, normocephalic. EYES: Eyes appear normal, extraocular movements intact, sclera anicteric, conjunctiva are normal. ENT: nares patent, oropharynx clear without exudates. Moist mucous membranes. NECK: Normal range of motion, supple without lymphadenopathy LUNGS: Breath sounds clear to auscultation bilaterally and equal. No wheezes rales or rhonchi. HEART: Regular rate and rhythm without murmurs ABDOMEN: Soft, nontender, normoactive bowel sounds. No rebound, guarding, or rigidity. No masses appreciated. EXTREMITIES: Nontender, good range of motion, no pitting or edema. NEUROLOGICAL: No focal neurological deficits. Moves all extremities spontaneously Motor and sensory grossly intact on exam. PSYCH: Dysphoric mood, flat affect SKIN: Warm, Dry, normal turgor, no rashes or lesions noted on exposed skin TRAVEL OUTSIDE OF THE [place] IN LAST 30 DAYS: No - Related Data Allergies/Adverse Reactions: No Known Allergies Allergy (Verified 03/06/18 00:39) Past Medical History - Social History Smoking Status: Never Smoker Family History: Reviewed & Not Pertinent, Thyroid Disfunction Patient has suicidal ideation: Yes Patient has homicidal ideation: No Renal/ Medical History: Denies: Hx Peritoneal Dialysis Past Surgical History: Reports: Hx Section - Immunizations Hx Diphtheria, Pertussis, Tetanus Vaccination: No - given today Physical Exam - Vital signs Vitals: Temp Pulse Resp BP Pulse Ox 98.5 F 93 16 128/73 H 100 08/30/18 21:51 08/30/18 21:51 08/30/18 21:51 08/30/18 21:51 08/30/18 21:51 Course - Re-evaluation Re-evalutation: Patient seen and examined, vital signs reviewed. Medical screening testing was ordered including bloodwork, EKG, and toxicology. Results of testing were reviewed. Testing demonstrated mild anemia, otherwise unremarkable. Patient has been stable from a hemodynamic standpoint. At this point I feel that the patient is medically cleared and can be further evaluated from a psychiatric standpoint for final disposition from the emergency department. Patient updated on plan of care. Laboratory 08/30/18 08/30/18 08/30/18 22:00 22:00 22:00 WBC 7.2 RBC 3.90 Hgb 11.1 L Hct 32.8 L MCV 84 MCH 28.5 MCHC 33.9 RDW 17.8 H Plt Count 233 Seg Neutrophils % 57.3 Lymphocytes % 27.4 Monocytes % 11.0 Eosinophils % 2.9 Basophils % 1.4 Absolute Neutrophils 4.1 Absolute Lymphocytes 2.0 Absolute Monocytes 0.8 Absolute Eosinophils 0.2 Absolute Basophils 0.1 Sodium 137.2 Potassium 4.6 Chloride 100 Carbon Dioxide 29 Anion Gap 8 BUN 11 Creatinine 0.98 Est GFR ( Amer) > 60 Est GFR (Non-Af Amer) > 60 Glucose 84 Calcium 9.8 Total Bilirubin 0.2 Direct Bilirubin 0.2 Neonat Total Bilirubin Not Reportable Neonat Direct Bilirubin Not Reportable Neonat Indirect Bili Not Reportable AST 21 ALT 24 Alkaline Phosphatase 53 Total Protein 7.8 Albumin 4.2 Serum HCG, Qual NEGATIVE Urine Color Urine Appearance Urine pH Ur Specific [place] Urine Protein Urine Glucose (UA) Urine Ketones Urine Blood Urine Nitrite Urine Bilirubin Urine Urobilinogen Ur Leukocyte Esterase Urine WBC (Auto) Urine RBC (Auto) Urine Bacteria (Auto) Squamous Epi Cells Auto Urine Mucus (Auto) Urine Ascorbic Acid Salicylates < 1.0 L Urine Opiates Screen Urine Methadone Screen Acetaminophen < 10 L Ur Barbiturates Screen Ur Phencyclidine Scrn Ur Amphetamines Screen U Benzodiazepines Scrn Urine Cocaine Screen U Marijuana (THC) Screen Serum Alcohol < 10 08/31/18 08/31/18 03:00 03:00 WBC RBC Hgb Hct MCV MCH MCHC RDW Plt Count Seg Neutrophils % Lymphocytes % Monocytes % Eosinophils % Basophils % Absolute Neutrophils Absolute Lymphocytes Absolute Monocytes Absolute Eosinophils Absolute Basophils Sodium Potassium Chloride Carbon Dioxide Anion Gap BUN Creatinine Est GFR ( Amer) Est GFR (Non-Af Amer) Glucose Calcium Total Bilirubin Direct Bilirubin Neonat Total Bilirubin Neonat Direct Bilirubin Neonat Indirect Bili AST ALT Alkaline Phosphatase Total Protein Albumin Serum HCG, Qual Urine Color YELLOW Urine Appearance CLEAR Urine pH 7.0 Ur Specific [place] 1.014 Urine Protein NEGATIVE Urine Glucose (UA) NEGATIVE Urine Ketones NEGATIVE Urine Blood SMALL H Urine Nitrite NEGATIVE Urine Bilirubin NEGATIVE Urine Urobilinogen NEGATIVE Ur Leukocyte Esterase TRACE H Urine WBC (Auto) 1 Urine RBC (Auto) 1 Urine Bacteria (Auto) TRACE Squamous Epi Cells Auto 2 Urine Mucus (Auto) RARE Urine Ascorbic Acid NEGATIVE Salicylates Urine Opiates Screen NEGATIVE Urine Methadone Screen NEGATIVE Acetaminophen Ur Barbiturates Screen NEGATIVE Ur Phencyclidine Scrn NEGATIVE Ur Amphetamines Screen NEGATIVE U Benzodiazepines Scrn NEGATIVE Urine Cocaine Screen NEGATIVE U Marijuana (THC) Screen NEGATIVE Serum Alcohol - Vital Signs Vital signs: Temp Pulse Resp BP Pulse Ox 98.5 F 93 16 128/73 H 100 08/30/18 21:51 08/30/18 21:51 08/30/18 21:51 08/30/18 21:51 08/30/18 21:51 - Laboratory Result Diagrams: 08/30/18 22:00 08/30/18 22:00 Laboratory results interpreted by me: 08/30/18 08/30/18 08/31/18 22:00 22:00 03:00 Hgb 11.1 L Hct 32.8 L RDW 17.8 H Urine Blood SMALL H Ur Leukocyte Esterase TRACE H Salicylates < 1.0 L Acetaminophen < 10 L - EKG Interpretation by Me Additional EKG results interpreted by me: EKG demonstrates sinus rhythm with a ventricular rate of 78 bpm, QTC 452 ms, normal axis, no evidence of acute ischemia in this EKG. No prior for comparison. Discharge - Discharge Clinical Impression: Suicidal ideation Condition: Stable Disposition: PSYCH HOSP/UNIT
[2018-08-31 03:24] LABS: APPEARANCE,URINE CLEAR; BILIRUBIN,URINE NEGATIVE (NEGATIVE); COLOR,URINE YELLOW; GLUCOSE, URINE NEGATIVE (NEGATIVE); KETONES,URINE NEGATIVE (NEGATIVE); LEUKOCYTE ESTERASE,URINE TRACE (NEGATIVE); NITRITE,URINE NEGATIVE (NEGATIVE); PROTEIN,URINE NEGATIVE (NEGATIVE); URINE SPECIFIC GRAVITY 1.014; UROBILINOGEN,URINE NEGATIVE mg/dL (<2.0)
[2018-08-31 03:27] LABS: URINE AMPHETAMINES SCREEN NEGATIVE; URINE BARBITURATES SCREEN NEGATIVE; URINE BENZODIAZEPINES SCREEN NEGATIVE; URINE COCAINE SCREEN NEGATIVE; URINE MARIJUANA (THC) SCREEN NEGATIVE; URINE METHADONE SCREEN NEGATIVE; URINE PHENCYCLIDINE SCREEN NEGATIVE
--- NOTE | 2018-08-31 11:06 | EKG REPORT ---
SEVERITY:- NORMAL ECG - SINUS RHYTHM : Confirmed by: Nhung Dominguez 31-Aug-2018 11:05:53
--- NOTE | 2018-08-31 11:19 | PSYCHOLOGICAL NOTE ---
Psych Note - Psych Note Date seen by psych provider: 08/31/18 Time seen by psych provider: 07:50 - Evaluation from [id number]. collateral from [id number]. Psych Note: Reason for Consult: SI, 24 Hour IVC Petition Contact Permissions: Pamela [phone] Patient is a 23 year old female who presented to the ED last evening via EMS for SI. She stated she "had a little bit of both"when asked of she had general vague thoughts of wanting to or plans on what she would do. She stated "I wanted to ride by bicycle into traffic and I told my last night about it." She stated "I did it before just never told anyone." She noted stress surrounding court and DSS in trying to get her son back who was kidnapped and abused back in March 2017 by the man on son's certificate but is not biological father, son ended up in Foster Care and when mother went to get him they would not allow her to take him because she kept failing drug tests when she was using CBD oil. She noted it has been between [facility] and [facility] and each says she needs to reach out to the other. She stated "it has been one thing after another, lots of stress, I am very anxious and in a state of depression." She acknowledged she "saw the trust and estates attorney yesterday, it didn't go good, there's still no set date." She stated the last court date was 's and commented "it has been 2 years, I have missed birthdays, Ivonne and more." She admitted when she was in her teens she got into trouble and had a lot of court which has caused her to be anxious now in court. She described "heart palpitations, shaking, fast heart beat, sweating and when she gets up to talk it is a blur which she forgets and all of this makes me uncomfortable in addition to being worried about my son and not having him the past 2 years." She noted her has lots of stress, depression, was hospitalized for medical and mental health in the last two years. She denied previous MH treatment to include outpatient, medication management and inpatient. UDS was negative for all substances tested for. Patient was alert and oriented to self, person, place, time and situation. Mood was depressed with flat affect. She admitted to SI and then discussed the struggle the past 2 years with her son being kidnapped, abused, put into Foster Care and what she is having to go through to get him back. She denied HI. She did not appear to be responding to internal stimuli as evidenced by fair eye contact, answering questions appropriately when addressed, staying on topic, carrying on dialogue conversation and being engaged in evaluation. Thought processes were linear and organized. Conversational speech was soft in tone but within normal limits for rate and prosody. Intellectual abilities are estimated to be average. Insight, judgment and impulse control were fair as evidenced by discussing and processed her situational stress surrounding her son. Patient gave verbal consent to obtain collateral from and involve her in plan of care. She noted patient texted her last evening saying she wanted to ride her bike into traffic, did not respond to phone calls or test messages so couldn't get in touch with her and called . She confirmed the stress surrounding patient's son (kidnapped by man on certificate who is not biological father and has child sodomy charges in another state), DSS involvement and court. She identified patient has been out of their home for 3 weeks now due to DSS recommendation, house checks, patient having to complete so many parenting classes (has done all but 2 which are arranged) and requirement that patient gets psychological testing completed (has gone to 5 places who say they do not do it). She stated there is financial struggle. She stated patient does not have a MH history. She acknowledged "since her son's kidnapping and having to go through everything per DSS and court over the past year or longer she has become anxious, especially in court where she has heart palpitations and diarrhea, and over the last 6 months she has declined, become more depressed/angry/just snaps/verbally mean, doesn't remember things or snapping, cries all the time, sleeps more, has made SI statements a couple times but never taken action and has not been eating/drinking/showering." She described patient as "usually cheerful and helpful prior to the stress with her son." She noted patient has a brain tumor, has sought medical attention for this and they were told it is not an aneurism. She noted she has been in touch with [facility] for herself and her own MH. She stated she would contact DSS/CPS worker to discuss options for them and patient getting son back if she came into the home given state of mind. She did and made arrangements with DSS/CPS which allowed for patient to return which would be someone to monitor patient and be in control of medications/administration. Diagnosis: 311 (F32.9) Unspecified Depressive Disorder (seems situational and related to stress surrounding son) Medication recommendations made by the psychiatric medical provider, Dr. Katty MD., includes: Add Celexa 20MG daily for depression Add Buspar 5MG twice a day for anxiety/calming effect/depression/sleep Impression/Plan: Patient is cleared from acute psychiatric services. She endorsed SI and increased depression/anxiety surrounding court and DSS/CPS involvement regarding son who was kidnapped end of 2016 by man on Certificate who was not biological father and reportedly had child sodomy charges in another state. confirmed it has been a constant jain with court and DSS/CPS. contacted CPS who approved patient going back to 's home (previously was not supposed to until 2 more parenting classes completed and psychological testing which patient has been trying to do) for safety of patient and to keep her on track/stabilized. agreed to have oversight, as well as be in control of medications/administration. Patient scheduled for follow up with Deonte in [place] on 09/07/18 at 0930. Patient provided with outpatient MH resource sheet which highlighted pride, listed appointment date and time, as well as highlighted [facility] for crisis/talk therapy/linkage to other services/supports. Transportation may be an issue as has gasoline to get to hospital not not back home. Hospital approved one time taxi voucher. aware of plan of care and follow up appointments. Consulted with Dr. Son regarding the management and care of patient. ED Physician in agreement with recommendations.
[2018-08-31 13:01] VITALS: BP 101/62
--- NOTE | 2018-08-31 19:03 | ER Document Report ---
Entered by KULWANT CHEUNG SCRIBE 08/31/18 [id number] Acting as scribe for:AIMEE STEEN DO Doctor's Note Notes: 08/31/18 18:44 Patient appears depressed. Patient complains of pain in her left axilla. This area has a soft mass. 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 Patient states she does not want any gabapentin here as she is prescribed as she states this does not work. PHYSICAL EXAM GENERAL: Alert, interacts well. No acute distress. HEAD: Normocephalic, atraumatic. EYES: Pupils equal, round, and reactive to light. Extraocular movements intact. ENT: Oral mucosa moist, tongue midline. NECK: Full range of motion. Supple. Trachea midline. LUNGS: No respiratory distress. HEART: Regular rate and rhythm. No murmurs, gallops, or rubs. EXTREMITIES: Moves all 4 extremities spontaneously. No edema, radial and dorsalis pedis pulses 2/4 bilaterally. No cyanosis. NEUROLOGICAL: Alert and oriented x3. Normal speech. PSYCH: Normal affect, normal mood. SKIN: Warm and dry. See note above. 08/31/18 19:00 Patient will be started on medications and referred for therapy. Agree with psychiatric clearance at this time. Discharge to home. Has a good support system as an outpatient. I personally performed the services described in the documentation, reviewed and edited the documentation which was dictated to the scribe in my presence, and it accurately records my words and actions.
== END 2018-08-31 13:07 | disposition home or self-care (01) ==
LOC: ER 21:44
DX: R45.851 Suicidal ideations (principal); Z59.0 Homelessness; D64.9 Anemia, unspecified; R22.32 Localized swelling, mass and lump, left upper limb; M79.622 Pain in left upper arm; G62.9 Polyneuropathy, unspecified; Z79.899 Other long term (current) drug therapy; L81.9 Disorder of pigmentation, unspecified; Z63.79 Other stressful life events affecting family and household; Z65.3 Problems related to other legal circumstances
CPT/HCPCS: 36415; 80053; 80307; 81001; 84703; 85025; 93005; 93010; 99285

== ENCOUNTER 2019-11-07 19:22 | Emergency (ER) | payer SELFPAY ==
--- NOTE | 2019-11-07 20:11 | ER Document Report ---
HPI - HPI Patient complains to provider of: Low back pain Time Seen by Provider: 11/07/19 20:05 Pain Level: 4 Context: 24-year-old female with no previous medical problems complaining of low back pain for the past 3 days. States it started after pulling weeds in the yard. Denies any previous trauma or injury to her back. States pain does radiate down her left leg. Last dose of Tylenol at 6 PM. Denies any loss control of her bowels or bladder no saddle anesthesia. No red flags. Denies any urinary symptoms. States walked to the emergency room. Exacerbated by: Movement Relieved by: Remaining still Similar symptoms previously: No Recently seen / treated by doctor: No - ROS Systems Reviewed and Negative: Yes All other systems reviewed and negative - CONSTITUTIONAL Constitutional: DENIES: Fever - NEURO Neurology: DENIES: Headache, Weakness - GASTROINTESTINAL Gastrointestinal: DENIES: Abdominal Pain, Nausea - URINARY Urinary: DENIES: Dysuria, Urgency - REPRODUCTIVE Reproductive: DENIES: : - MUSCULOSKELETAL Musculoskeletal: REPORTS: Back Pain - DERM Skin Color: Normal Skin Problems: None Past Medical History - General Information source: Patient - Social History Smoking Status: Current Every Day Smoker Frequency of alcohol use: Social Drug Abuse: None Family History: Reviewed & Not Pertinent, Thyroid Disfunction Patient has homicidal ideation: No Renal/ Medical History: Denies: Hx Peritoneal Dialysis Past Surgical History: Reports: Hx Section - Immunizations Hx Diphtheria, Pertussis, Tetanus Vaccination: No - given today Vertical Provider Document - CONSTITUTIONAL Agree With Documented VS: Yes Exam Limitations: No Limitations - INFECTION CONTROL TRAVEL OUTSIDE OF THE [place] IN LAST 30 DAYS: No - HEENT HEENT: Atraumatic - NECK Neck: Normal Inspection, Supple - RESPIRATORY Respiratory: Breath Sounds Normal, No Respiratory Distress. negative: Rales, Rhonchi, Wheezing - CARDIOVASCULAR Cardiovascular: Regular Rate, Regular Rhythm, No Murmur - GI/ABDOMEN Gastrointestinal: Abdomen Soft - BACK Back: Abnormal Inspection - Numbness on palpation from L4-S1. There is tenderness of the bilateral sciatic notches. She has negative straight leg raising bilaterally.. negative: CVA Tenderness-Right, CVA Tenderness-Left - MUSCULOSKELETAL/EXTREMETIES Musculoskeletal/Extremeties: FROM, Non-Tender - NEURO Level of Consciousness: Awake, Alert, Appropriate Motor/Sensory: No Motor Deficit, No Sensory Deficit Deep Tendon Reflexes: 2+ Notes: She is ambulatory with a steady gait. Reflexes equal and adequate bilateral patellas. She is neurovascular intact. - DERM Integumentary: Warm, Dry, No Rash Course - Re-evaluation Re-evalutation: 11/07/19 22:13 Patient is resting comfortably with decreased pain. She is ambulatory with steady gait. She is neurovascular intact. Counseled take medications as prescribed. Outpatient follow-up with a primary care physician if not improving in 2 to 3 days. Patient was given strict return to the emergency room guidelines. Return for any new or worsening symptoms. All questions were answered. Patient verbalized understanding and agrees with plan of care. - Vital Signs Vital signs: Temp Pulse Resp BP Pulse Ox 98.9 F 72 16 115/60 100 11/07/19 20:05 11/07/19 19:38 11/07/19 19:38 11/07/19 19:38 11/07/19 19:38 Discharge - Discharge Clinical Impression: Back pain with sciatica Condition: Stable Disposition: HOME, SELF-CARE Instructions: Low Back Pain ([facility]), Muscle Strain ([facility]), Warm Packs ([facility]) Additional Instructions: You have been seen in the Emergency Department (ED) today for back pain. Your workup and exam have not shown any acute abnormalities and you are likely suffering from muscle strain or possible problems with your discs, but there is no treatment that will fix your symptoms at this time. Please take the naproxen that has been prescribed as directed. Take the steroids and Flexeril as prescribed as well you should also purchase a local lidocaine cream such as "aspercreme with lidocaine" and use per bottle instructions to the affected area. Apply heat to the area as often as you are able. Continue to keep active and avoid prolonged periods of bed rest. Please follow up with your doctor as soon as possible regarding today's ED visit and your back pain. Return to the ED for worsening back pain, fever, weakness or numbness of either leg, or if you develop either (1) an inability to urinate or have bowel movements, or (2) loss of your ability to control your bathroom functions (if you start having "accidents"), or if you develop other new symptoms that concern you.concern you. Prescriptions: Prednisone [Deltasone 20 mg Tablet] See Protocol PO DAILY 9 Days #18 tablet Cyclobenzaprine HCl [Flexeril 10 mg Tablet] 10 mg PO TIDP PRN #15 tab PRN Reason: Naproxen [Naprosyn] 500 mg PO BID #20 tablet Referrals: ALFREDO CLAY MD [Primary Care Provider] - Follow up as needed
[2019-11-07] MEDS ORDERED: KETOROLAC TROMETHAMINE 60 MG/2 ML SDV IM ONE (21:30)
[2019-11-07] MEDS ORDERED: PREDNISONE 20 MG TABLET PO ONE (21:30)
[2019-11-07 22:04] LABS: APPEARANCE,URINE CLEAR; BILIRUBIN,URINE NEGATIVE (NEGATIVE); COLOR,URINE STRAW; GLUCOSE, URINE NEGATIVE (NEGATIVE); KETONES,URINE NEGATIVE (NEGATIVE); LEUKOCYTE ESTERASE,URINE NEGATIVE (NEGATIVE); NITRITE,URINE NEGATIVE (NEGATIVE); PROTEIN,URINE NEGATIVE (NEGATIVE); URINE SPECIFIC GRAVITY 1.006; UROBILINOGEN,URINE NEGATIVE mg/dL (<2.0)
[2019-11-08 02:56] VITALS: BP 120/66
== END 2019-11-07 22:20 | disposition home or self-care (01) ==
LOC: ER 19:22
DX: M54.40 Lumbago with sciatica, unspecified side (principal); F17.200 Nicotine dependence, unspecified, uncomplicated
CPT/HCPCS: 99283; 96372; 81025; 81001; J1885; J7512

== ENCOUNTER 2019-12-17 14:27 | Emergency (ER) | payer SELFPAY ==
[2019-12-17 14:32] VITALS: BP 104/69
[2019-12-17] MEDS ORDERED: NORMAL SALINE 1000 ML 1,000 ML IV ONE (15:40)
[2019-12-17] MEDS ORDERED: ONDANSETRON HCL INJ/PF 4 MG/2 ML SDV IV ONE (15:40)
[2019-12-17] MEDS ORDERED: KETOROLAC TROMETHAMINE INJ/PF 30 MG/1 ML SDV IV ONE (15:40)
[2019-12-17] MEDS ORDERED: DIPHENHYDRAMINE HCL 50 MG/ML VIAL IV ONE (15:41)
--- NOTE | 2019-12-17 15:47 | ER Document Report ---
ED General - General Chief Complaint: Heat Exposure Stated Complaint: HEAT EXPOSURE Time Seen by Provider: 12/17/19 15:38 Primary Care Provider: ALFREDO CLAY MD [Primary Care Provider] - Follow up as needed Mode of Arrival: Ambulatory Information source: Patient, Friend Notes: Patient is a 24-year-old female comes emergency room with accompaniment of her friend who talks for because she states she is a poor historian. Patient evidently was starting to feel a migraine yesterday. 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 She attempted to get ibuprofen or Tylenol down her but she could not hold it down. She was not able to drink any fluids and [place]. She states that she went to bedside most of the night last night when she got up this morning the cycle started all over again. She is not keeping any fluids and whatsoever currently. Patient states this does feel similar to her migraine headaches which is behind the right eye however when she gets her migraine headaches usually does not have any vomiting. And she is unable to keep anything down at this point. TRAVEL OUTSIDE OF THE [place] IN LAST 30 DAYS: No - HPI Onset: Yesterday Onset/Duration: Gradual, Persistent, Worse Quality of pain: Achy, Throbbing Severity: Moderate Pain Level: 3 Associated symptoms: Nausea, Vomiting. denies: Shortness of breath, Slow to respond Exacerbated by: Other - Light Relieved by: Denies Similar symptoms previously: Yes Recently seen / treated by doctor: No - Related Data Allergies/Adverse Reactions: No Known Allergies Allergy (Verified 12/17/19 15:31) Past Medical History - General Information source: Patient, Friend - Social History Smoking Status: Current Every Day Smoker Cigarette use (# per day): Yes Chew tobacco use (# tins/day): No Smoking Education Provided: Yes Frequency of alcohol use: Social Drug Abuse: None Lives with: Family Family History: Reviewed & Not Pertinent, Thyroid Disfunction Patient has homicidal ideation: No Renal/ Medical History: Denies: Hx Peritoneal Dialysis Past Surgical History: Reports: Hx Section - Immunizations Hx Diphtheria, Pertussis, Tetanus Vaccination: No - given today Review of Systems - Review of Systems Constitutional: No symptoms reported EENT: No symptoms reported Cardiovascular: No symptoms reported - Use the echo I use the heck out of it as we can Respiratory: No symptoms reported Gastrointestinal: Nausea, Vomiting Genitourinary: No symptoms reported Female Genitourinary: No symptoms reported Musculoskeletal: No symptoms reported Skin: No symptoms reported Hematologic/Lymphatic: No symptoms reported Neurological/Psychological: Headaches -: Yes All other systems reviewed and negative Physical Exam - Vital signs Vitals: Temp Pulse Resp BP Pulse Ox 99.3 F 114 H 18 104/69 99 12/17/19 14:31 12/17/19 14:31 12/17/19 14:31 12/17/19 14:12/17/19 14:31 Interpretation: Hypotensive, Tachycardic - Notes Notes: PHYSICAL EXAMINATION: GENERAL: Patient is a 24-year-old female who is in no apparent distress on examination this afternoon. She is however withdrawn and mildly ill-appearing. HEAD: Atraumatic, normocephalic. EYES: Pupils equal round and reactive to light, extraocular movements intact, conjunctiva are normal. ENT: Nares patent, oropharynx clear without exudates. Dry mucous membranes NECK: Normal range of motion, supple without lymphadenopathy LUNGS: Breath sounds clear to auscultation bilaterally and equal. No wheezes rales or rhonchi. HEART: tachycardic without murmurs ABDOMEN: Soft, nontender, nondistended abdomen. No guarding, no rebound. No masses appreciated. Female : deferred Musculoskeletal: Normal range of motion, no pitting or edema. No cyanosis. NEUROLOGICAL: Normal speech, normal gait. Normal sensory, motor exams PSYCH: Flat affect SKIN: Warm, Dry, normal turgor, no rashes or lesions noted. Course - Re-evaluation Re-evalutation: 12/18/19 00:00 After my initial evaluation patient was put into the triage area to have blood drawn and IV placed. It was reported later the patient had left without notification. She had been waiting for approximately an hour and 1/2 to 2hours and from what I was told by nursing the IV had not been started and no fluids were given. I asked that patient be called and I was informed that there was no answer at the number given. So patient left AGAINST MEDICAL ADVICE. - Vital Signs Vital signs: Temp Pulse Resp BP Pulse Ox 99.3 F 114 H 18 104/69 99 12/17/19 14:31 12/17/19 14:31 12/17/19 14:31 12/17/19 14:31 12/17/19 14:31 - Laboratory Result Diagrams: 12/17/19 15:55 12/17/19 15:55 Laboratory results interpreted by me: 12/17/19 12/17/19 15:55 15:55 WBC 13.5 H Hgb 10.9 L Hct 34.2 L MCH 25.6 L MCHC 31.7 L RDW 19.0 H Plt Count 142 L Seg Neuts % (Manual) 85 H Lymphocytes % (Manual) 3 L Abs Neuts (Manual) 12.0 H Sodium 131.2 L Glucose 136 H Discharge - Discharge Clinical Impression: Left against medical advice Condition: Fair Disposition: AGAINST MEDICAL ADVICE Referrals: ALFREDO CLAY MD [Primary Care Provider] - Follow up as needed
[2019-12-17 16:16] LABS: HEMATOCRIT 34.2 % (36.0-47.0); HEMOGLOBIN 10.9 g/dL (12.0-15.5); MEAN CORPUSCULAR HEMOGLOBIN 25.6 pg (27.0-33.4); MEAN CORPUSCULAR HGB CONC 31.7 g/dL (32.0-36.0); MEAN CORPUSCULAR VOLUME 81 fl (80-97); PLATELET COUNT 142 10^3/uL (150-450); RED BLOOD COUNT 4.24 10^6/uL (3.72-5.28); WHITE BLOOD COUNT 13.5 10^3/uL (4.0-10.5)
[2019-12-17 16:36] LABS: ALKALINE PHOSPHATASE 66 U/L (38-126); ANION GAP 6 (5-19); ASPARTATE AMINO TRANSFERASE 25 U/L (14-36); BILIRUBIN,TOTAL 0.7 mg/dL (0.2-1.3); BLOOD UREA NITROGEN 12 mg/dL (7-20); CALCIUM 8.9 mg/dL (8.4-10.2); CARBON DIOXIDE 26 mmol/L (22-30); CHLORIDE 99 mmol/L (98-107); GLUCOSE 136 mg/dL (75-110); POTASSIUM 4.1 mmol/L (3.6-5.0); TOTAL PROTEIN 7.6 g/dL (6.3-8.2)
[2019-12-17 16:50] LABS: ABSOLUTE LYMPHOCYTES# (MANUAL) 0.5 10^3/uL (0.5-4.7); ABSOLUTE MONOCYTES # (MANUAL) 0.7 10^3/uL (0.1-1.4); BAND NEUTROPHILS % (MANUAL) 4 % (3-5); BASOPHILS % (MANUAL) 0 % (0-2); EOSINOPHILS % (MANUAL) 2 % (0-6); LYMPHOCYTES % (MANUAL) 3 % (13-45); MONOCYTES % (MANUAL) 5 % (3-13); SEGMENTED NEUTROPHILS % (MAN) 85 % (42-78); TOTAL CELLS COUNTED 100
[2019-12-17 16:52] LABS: ANISOCYTOSIS 2+; PLATELET COMMENT ADEQUATE; POLYCHROMASIA SLIGHT; TOXIC GRANULATION SLIGHT
== END 2019-12-17 23:21 | disposition left against medical advice (07) ==
LOC: ER 14:27
DX: R51 Headache (principal); R11.2 Nausea with vomiting, unspecified; F17.210 Nicotine dependence, cigarettes, uncomplicated
CPT/HCPCS: 36415; 80053; 85025; 99281